=== PATIENT | female | born 1965 | race Caucasian/White ===

== ENCOUNTER 2019-03-09 05:45 | Day surgery (SDC) | payer OTHER, SELFPAY ==
[~2019-03-09] VITALS: Ht 162.6 cm; Wt 68.4 kg
[2019-03-09] MEDS ORDERED: BUPIVACAINE/PF 0.5% ONE (06:26)
[2019-03-09] MEDS ORDERED: LIDOCAINE 1%-EPI 1:100K, 20ML ONE (06:26)
[2019-03-09] MEDS ORDERED: EPINEPHRINE 1 MG/ML, 1ML ONE (06:26)
[2019-03-09 07:14] VITALS: BP 116/72
[2019-03-09] MEDS ORDERED: GLUT500T3 PO (07:14)
[2019-03-09] MEDS ORDERED: VITA1TAB19 PO (07:14)
[2019-03-09] MEDS ORDERED: LACT1CAP37 PO (07:14)
[2019-03-09] MEDS ORDERED: CHOL500045 PO (07:14)
[2019-03-09] MEDS ORDERED: MAGN100T PO (07:14)
[2019-03-09] MEDS ORDERED: FLAX1CAP PO (07:14)
[2019-03-09] MEDS ORDERED: MULT-658 PO (07:14)
[2019-03-09] MEDS ORDERED: IRON PO (07:14)
[2019-03-09] MEDS ORDERED: ASCO10004 PO (07:14)
[2019-03-09] MEDS ORDERED: LACTATED RINGERS 1,000 ML IV SCH (07:18)
[2019-03-09] MEDS ORDERED: ACETAMINOPHEN 500 MG TABLET PO ONE (07:30)
[2019-03-09] MEDS ORDERED: GABAPENTIN 300 MG CAPSULE PO ONE (07:30)
[2019-03-09] MEDS ORDERED: FENTANYL PF 100 MCG/2ML ONE (08:04)
[2019-03-09] MEDS ORDERED: MIDAZOLAM 1 MG/ML, 2ML ONE (08:04)
[2019-03-09] MEDS ORDERED: METOPROLOL 1 MG/ML, 5ML IV PRN (08:30)
[2019-03-09] MEDS ORDERED: hydrALAzine 20 MG/ML, 1ML IV PRN (08:30)
[2019-03-09] MEDS ORDERED: FENTANYL PF 100 MCG/2ML IV PRN (08:30)
[2019-03-09] MEDS ORDERED: ALBUTEROL/IPRATROPIUM 2.5MG/0.5MG, 3 ML NPPB PRN (08:30)
[2019-03-09] MEDS ORDERED: HYDROmorphone 2 MG/ML, 1ML IVPush PRN (08:30)
[2019-03-09] MEDS ORDERED: MEPERIDINE/PF 25MG/ML,1ML IVPush PRN (08:30)
[2019-03-09] MEDS ORDERED: PROMETHAZINE 25 MG/ML, 1ML IV PRN (08:30)
[2019-03-09] MEDS ORDERED: OXYcodone 5 MG/5 ML ORAL.SOL UDC PO PRN (08:30)
[2019-03-09] MEDS ORDERED: MIDAZOLAM 1 MG/ML, 2ML IV PRN (08:30)
[2019-03-09] MEDS ORDERED: PROPOFOL 10 MG/ML, 20ML ONE (08:49)
[2019-03-09] MEDS ORDERED: CEFAZOLIN 1,000 MG ONE (08:49)
[2019-03-09] MEDS ORDERED: DEXAMETHASONE 4 MG/ML, 1ML ONE (08:49)
[2019-03-09] MEDS ORDERED: ONDANSETRON 2MG/ML, 2ML ONE (08:49)
[2019-03-09] MEDS ORDERED: KETOROLAC 30 MG/1 ML ONE (08:52)
[2019-03-09] MEDS ORDERED: CHOLECALCIFEROL 5,000u TAB PO SCH (09:00)
[2019-03-09] MEDS ORDERED: MULTIVITAMIN 1 TABLET PO SCH (09:00)
== END 2019-03-09 12:05 | disposition home or self-care (01) ==
LOC: OR 05:45
PROVIDERS: ATTEND Orthopaedic Surgery
DX: S83.231A Complex tear of medial meniscus, current injury, right knee, initial encounter (principal); S83.281A Other tear of lateral meniscus, current injury, right knee, initial encounter; M22.41 Chondromalacia patellae, right knee; K58.9 Irritable bowel syndrome, unspecified; Z79.899 Other long term (current) drug therapy; Z88.1 Allergy status to other antibiotic agents; Z88.5 Allergy status to narcotic agent; Z82.61 Family history of arthritis; Z82.3 Family history of stroke; W01.0XXA Fall on same level from slipping, tripping and stumbling without subsequent striking against object, initial encounter; Y93.01 Activity, walking, marching and hiking; Y92.89 Other specified places as the place of occurrence of the external cause; Y99.8 Other external cause status
CPT/HCPCS: 29880; J0171; J0690; J1100; J1885; J2405; J2704; J3010; J3490; J7120; J2250